=== PATIENT | female | born 1990 | race Caucasian/White ===

== ENCOUNTER 2017-07-14 16:03 | Emergency (ER) | payer MEDICAID ==
[2017-07-14] MEDS ORDERED: hydrOXYzine HCl 50 MG/ML SDV IM ONE (17:18)
[2017-07-14] MEDS ORDERED: Morphine 10 MG/ML Syringe IM ONE (17:18)
[2017-07-14 17:28] VITALS: BP 132/71
--- NOTE | 2017-07-14 20:18 | ER ---
DATE SEEN: 07/14/2017 CHIEF COMPLAINT: Headache. HISTORY OF PRESENT ILLNESS: This is a 26-year-old female complaining of a headache for 5 days, insidious onset, moderate to severe, associated with photophobia and/or characteristic of her usual migraine headache. She has taken ibuprofen at home with no relief. She also complains that she quit drinking about 5 days ago after a 2-month binge. REVIEW OF SYSTEMS: Nausea and vomiting. No fever. No neck stiffness. PAST MEDICAL HISTORY: Migraine headaches. ALLERGIES: None except red eye. PHYSICAL EXAMINATION: VITAL SIGNS: Blood pressure is normal, pulse is 64, and temperature 98.2. HEAD: Normocephalic. EYES: Normal. Pupils equal and reactive to light. NECK: Supple. CHEST: Clear. CARDIOVASCULAR: Normal. MENTAL STATUS: Alert. LABORATORY DATA: None. IMPRESSION: Migraine headache exacerbation treatment, morphine and Vistaril. Symptoms improved. She had previously received Toradol at the clinic and the patient went home to follow up p.r.n. TIME SEEN: 1700 hours. /[id number] OLIVER/KRISTINE
== END 2017-07-14 17:38 | disposition home or self-care (01) ==
LOC: FB.ED 16:03
DX: G43.909 Migraine, unspecified, not intractable, without status migrainosus (principal)
CPT/HCPCS: 96372; 99283; J2270; J3410

== ENCOUNTER 2017-11-09 22:25 | Emergency (ER) | payer MEDICAID ==
[2017-11-09] MEDS ORDERED: hydrOXYzine HCl 50 MG/ML SDV IM ONE (22:37)
[2017-11-09] MEDS ORDERED: Ketorolac 60 MG/2 ML SDV IM ONE (22:37)
[2017-11-09] MEDS ORDERED: Metoclopramide 10 MG/2 ML SDV IM ONE (22:37)
--- NOTE | 2017-11-10 00:39 | ER ---
DATE SEEN: 11/09/2017 CHIEF COMPLAINT: Migraines. HISTORY OF PRESENT ILLNESS: A 26-year-old complaining of migraine headache that started about a week ago insidiously and now progressively getting worse. Associated with aura, blacking out, and nausea. REVIEW OF SYSTEMS: No fever or sore throat. No chest pain or shortness of breath. She complains of stress. PAST MEDICAL HISTORY: Chronic headache, orthostatic hypotension. ALLERGIES: Red dye. PHYSICAL EXAMINATION: GENERAL: Well-hydrated. VITAL SIGNS: Blood pressure is normal, pulse is 100, oxygenation is 98% on room air. EARS, NOSE, AND THROAT: Negative. EYES: PERRL. CHEST: Clear. CARDIOVASCULAR: Normal. SKIN: No pallor or jaundice. MENTAL STATUS: Alert. NEUROLOGIC: Exam is normal with grossly intact cranial nerves and no lateralizing signs. IMPRESSION: Migraine headache with aura. TREATMENT: Ketorolac, vistaril, and Reglan. Advised to rest. Follow up in the office on Saturday. Return to the ED with any worsening symptoms. /[id number] OLIVER/ERICL
[2017-11-10 19:36] VITALS: BP 107/66
== END 2017-11-09 23:13 | disposition home or self-care (01) ==
LOC: FB.ED 22:25
DX: G43.109 Migraine with aura, not intractable, without status migrainosus (principal); I95.1 Orthostatic hypotension
CPT/HCPCS: 82962; 96372; 99282; J1885; J2765; J3410; 99283

== ENCOUNTER 2018-05-07 22:07 | Emergency (ER) | payer SELFPAY ==
--- NOTE | 2018-05-07 22:49 | EDM.PDOC ---
ED HPI GENERAL MEDICAL PROBLEM - General Chief Complaint: Headache Stated Complaint: MIGRAINE,JAW PAIN Time Seen by Provider: 05/07/18 22:30 Source of Information: Reports: Patient History Limitations: Reports: No Limitations - History of Present Illness INITIAL COMMENTS - FREE TEXT/NARRATIVE: Nadeen reports sxs of headache associated with R lower mandibular and TMJ pain over the past 24 hrs. Sxs have progressed inspite of Alleve tabs. She has been treated for migraines in the past, but does not tolerate meds. There is some nausea and photophobia. 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 Musculoskeletal History: Reports: Back Pain, Chronic Neurological History: Reports: Headaches, Chronic - Infectious Disease History Infectious Disease History: Reports: Chicken Pox Social & Family History - Family History Family Medical History: Noncontributory - Caffeine Use Caffeine Use: Reports: Coffee ED ROS GENERAL - Review of Systems Review Of Systems: ROS reveals no pertinent complaints other than HPI. - Physical Exam Exam: See Below Exam Limited By: No Limitations General Appearance: Alert, WD/WN, Mild Distress, Thin Eye Exam: Bilateral Eye: EOMI, Normal Inspection, PERRL Ears: Normal External Exam, Normal TMs, Other (R TMJ tender) Nose: Normal Inspection Throat/Mouth: Normal Lips, Normal Oropharynx, Normal Voice, No Airway Compromise , Other (caried molars #30 and #31 tender to percussion) Head Exam: Normocephalic, Scalp Tenderness (frontalis and temporalis on R) Neck: Normal Inspection, Supple, Non-Tender, Full Range of Motion Respiratory/Chest: Lungs Clear Cardiovascular: Regular Rate, Rhythm Neuro Exam (Abbreviated): Alert, Oriented, CN II-XII Intact, Normal Cognition, No Motor/Sensory Deficits Back Exam: Normal Inspection, Full Range of Motion Extremities: Normal Inspection, Normal Range of Motion, Non-Tender Psychiatric: Normal Affect, Normal Mood Skin Exam: Warm, Dry, Intact, Normal Color, No Rash Course - Vital Signs Text/Narrative:: Following assessment at the [facility] ED, I administered Toradol 30 mg IM and Vistaril 50 mg IM. - Orders/Labs/Meds Meds: Medications Discontinued Medications Generic Name Dose Route Start Last Admin Trade Name Santa PRN Reason Stop Dose Admin Hydroxyzine HCl 50 mg 05/07/18 22:42 Vistaril IM 05/07/18 22:43 ONETIME ONE Ketorolac Tromethamine 30 mg 05/07/18 22:41 Toradol IM 05/07/18 22:42 ONETIME ONE Departure - Departure Time of Disposition: 23:00 Disposition: Home, Self-Care 01 Condition: Fair Clinical Impression: Migraine, TMJ, Temporomandibular tdkbw-fdua-fkavcoqudqn syndrome, Myofascial Pain, Infected dental caries - Discharge Information *PRESCRIPTION DRUG MONITORING PROGRAM REVIEWED*: Not Applicable *COPY OF PRESCRIPTION DRUG MONITORING REPORT IN PATIENT DENNYS: Not Applicable Prescriptions: Ampicillin [Principen] 500 mg PO Q8H #20 cap Referrals: Alban Don MD [Primary Care Provider] - Forms: ED Department Discharge - Problem List & Annotations (1) Infected dental caries SNOMED Code(s): 48237952 Code(s): K02.9 - DENTAL CARIES, UNSPECIFIED; K04.7 - PERIAPICAL ABSCESS WITHOUT SINUS Status: Acute Annotation/Comment:: I dispensed Ampicillin 500 mg tid for a week. (2) Migraine SNOMED Code(s): 13059726 Code(s): G43.909 - MIGRAINE, UNSP, NOT INTRACTABLE, WITHOUT STATUS MIGRAINOSUS Status: Acute Annotation/Comment:: Continue NSAIDs for headache sxs. (3) TMJ, Temporomandibular lbfwp-qrum-sxwyhvvonnu syndrome, Myofascial Pain SNOMED Code(s): 559184458 Code(s): M26.629 - ARTHRALGIA OF TEMPOROMANDIBULAR JOINT, UNSPECIFIED SIDE Status: Acute Annotation/Comment:: See DDS regarding managment of numerous dental issues. - Problem List Review Problem List Initiated/Reviewed/Updated: Yes - Assessment/Plan Plan: Follow up with DDS.
[2018-05-07] MEDS: Ketorolac 30 MG/ML SDV IM ONE (22:59)
[2018-05-07] MEDS: hydrOXYzine HCl 50 MG/ML SDV IM ONE (23:00)
[2018-05-08 00:41] VITALS: BP 122/51
== END 2018-05-07 23:07 | disposition home or self-care (01) ==
LOC: FB.ED 22:07
DX: M26.601 Right temporomandibular joint disorder, unspecified (principal); K04.7 Periapical abscess without sinus; G43.909 Migraine, unspecified, not intractable, without status migrainosus; Z91.02 Food additives allergy status
CPT/HCPCS: 96372; 99283; J1885; J3410

== ENCOUNTER 2018-09-19 09:44 | Emergency (ER) | payer SELFPAY ==
[2018-09-19] MEDS ORDERED: Ondansetron 8 MG Tab.DIS PO ONE (09:48)
[2018-09-19] MEDS ORDERED: SUMAtriptan 6 MG/0.5 ML SDV SUBCUT ONE (09:48)
--- NOTE | 2018-09-19 09:54 | EDM.PDOC ---
ED HPI GENERAL MEDICAL PROBLEM - General Stated Complaint: HEAD ACHE Time Seen by Provider: 09/19/18 09:44 Source of Information: Reports: Patient History Limitations: Reports: No Limitations - History of Present Illness INITIAL COMMENTS - FREE TEXT/NARRATIVE: 27 y.o.w.f with a h/o Migraine H/A came to the ED due to her classic migraine Headache with eugene temp headache, nausea and photophobia. No Trauma, but she may be . No trauma! Pt did not vomit but feels nauseated. She c/o right jaw pain as well. No other acute medical issues. 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 R headed migraine Pain Score (Numeric/FACES): 8 - Related Data Allergies Allergy/AdvReac Type Severity Reaction Status Date / Time red dye Allergy rash and Verified 09/19/18 09:51 swelling Home Meds: Home Meds Amoxicillin/Potassium Clav [Augmentin 875-125 Tablet] 1 each PO BID #20 tablet 09/19/18 [Rx] Ondansetron [Zofran ODT] 4 mg PO Q6H PRN #20 tab.dis 09/19/18 [Rx] Past Medical History HEENT History: Reports: Sinusitis Respiratory History: Reports: Asthma Gastrointestinal History: Reports: Other (See Below) Other 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 Musculoskeletal History: Reports: Back Pain, Chronic Neurological History: Reports: Headaches, Chronic - Infectious Disease History Infectious Disease History: Reports: Chicken Pox - Past Surgical History Respiratory Surgical History: Reports: None Social & Family History - Family History Family Medical History: Noncontributory - Caffeine Use Caffeine Use: Reports: Coffee ED ROS ENT - Review of Systems Review Of Systems: See Below Constitutional: Reports: Decreased Appetite HEENT: Reports: Dental Pain Respiratory: Reports: No Symptoms Cardiovascular: Reports: No Symptoms Endocrine: Reports: No Symptoms GI/Abdominal: Reports: Nausea : Reports: No Symptoms Musculoskeletal: Reports: No Symptoms Skin: Reports: No Symptoms Neurological: Reports: No Symptoms Psychiatric: Reports: No Symptoms Hematologic/Lymphatic: Reports: No Symptoms Immunologic: Reports: No Symptoms ED EXAM, ENT - Physical Exam Exam: See Below Exam Limited By: No Limitations General Appearance: Alert, WD/WN, Mild Distress Eye Exam: Bilateral Eye: Normal Inspection Ears: Normal External Exam Nose: Normal Inspection Mouth/Throat: Dental Pain, Dental Tenderness, Dental Trauma Head: Atraumatic, Normocephalic Neck: Normal Inspection, Supple, Non-Tender, Full Range of Motion Respiratory/Chest: No Respiratory Distress, Lungs Clear, Normal Breath Sounds, No Accessory Muscle Use, Chest Non-Tender Cardiovascular: Normal Peripheral Pulses, Regular Rate, Rhythm, No Edema, No Gallop, No JVD, No Murmur, No Rub GI/Abdominal: Normal Bowel Sounds, Soft, Non-Tender, No Organomegaly, No Distention, No Abnormal Bruit, No Mass, Pelvis Stable (Female) Exam: Deferred Back: Normal Inspection, Full Range of Motion Extremities: Normal Inspection, Normal Range of Motion, Non-Tender, No Pedal Edema Neurological: Alert, Oriented, CN II-XII Intact, Normal Cognition, Normal Gait Psychiatric: Normal Affect, Normal Mood Skin: Warm, Dry, Intact, Normal Color, No Rash Lymphatic: No Adenopathy Course - Vital Signs Text/Narrative:: 27 y.o.w.f with a h/o Migraine H/A came to the ED due to her classic migraine Headache with eugene temp headache, nausea and photophobia. No Trauma, but she may be . No trauma! Pt did not vomit but feels nauseated. She c/o right jaw pain as well. No other acute medical issues. 114/52 RR 18 Pulse ox 100% on RA Pulse 87 Temp 36.8 PE: Thin WNWD w f with headache, poor dentition with gingivitis and nausea. Neck supple. Labs/Imaging: Not indicated. Impression: Gingivitis, Tooth decay, Migraine Headache Tx: Zofran, Imitrex Reexam: Pain improved, pt requested to be D/C'd tp home. Plan: D/C with instructions Last Recorded V/S: Last Vital Signs Temp 36.7 C 09/19/18 09:45 Pulse 84 09/19/18 10:26 Resp 18 09/19/18 10:26 BP 133/74 09/19/18 10:26 Pulse Ox 100 09/19/18 10:26 - Orders/Labs/Meds Labs: Laboratory Tests 09/19/18 Range/Units 10:14 Urine HCG, Qual Negative (NEGATIVE) Meds: Medications Discontinued Medications Generic Name Dose Route Start Last Admin Trade Name Freq PRN Reason Stop Dose Admin Ondansetron HCl 8 mg 09/19/18 09:48 09/19/18 10:07 Zofran Odt PO 09/19/18 09:49 8 mg ONETIME ONE Administration Sumatriptan Succinate 6 mg 09/19/18 09:48 09/19/18 10:07 Imitrex SUBCUT 09/19/18 09:49 6 mg ONETIME ONE Administration Departure - Departure Time of Disposition: 10:20 Disposition: Home, Self-Care 01 Condition: Good Clinical Impression: Acute gingivitis, Tooth ache Migraine Qualifiers: Migraine type: without aura Status migrainosus presence: without status migrainosus Intractability: not intractable Qualified Code(s): G43.009 - Migraine without aura, not intractable, without status migrainosus - Discharge Information Prescriptions: Amoxicillin/Potassium Clav [Augmentin 875-125 Tablet] 1 each PO BID #20 tablet Ondansetron [Zofran ODT] 4 mg PO Q6H PRN #20 tab.dis PRN Reason: Nausea Instructions: Gingivitis, [id number], Sumatriptan injection, Migraine Headache, Ezry-bv-Awho, Ondansetron oral dissolving tablet Referrals: Alban Don MD [Primary Care Provider] - Forms: ED Department Discharge, ED Return to Work/School Form Additional Instructions: Activity as tolerated. Increase fluids. Augmentin 875mg twice a day until gone. Zofran 4mg 1 tablet every 6 hours as needed for increased nausea. Tylenol or Ibuprofen as needed for pain. Follow up with your regular MD at clinic if not improving.
[2018-09-19 11:04] VITALS: BP 133/74
== END 2018-09-19 10:40 | disposition home or self-care (01) ==
LOC: FB.ED 09:44
DX: G43.009 Migraine without aura, not intractable, without status migrainosus (principal); K05.00 Acute gingivitis, plaque induced; F17.210 Nicotine dependence, cigarettes, uncomplicated
CPT/HCPCS: 81025; 96372; 99284; A9270-GY; J3030

== ENCOUNTER 2018-11-05 17:36 | Emergency (ER) | payer MEDICAID, OTHER ==
[2018-11-05] MEDS ORDERED: Ketorolac 30 MG/ML SDV IVPUSH ONE (17:46)
[2018-11-05] MEDS ORDERED: Ondansetron 4 MG/2 ML SDV IVPUSH ONE (17:46)
[2018-11-05] MEDS ORDERED: Sodium Chloride 0.9% 1,000 ML IV ONE (17:46)
[2018-11-05] MEDS ORDERED: Alum Hydroxide/Mag Hydroxide 15 ML, Lidocaine 2% 15 ML PO ONE ×2 (17:48)
--- NOTE | 2018-11-05 17:56 | EDM.PDOC ---
ED HPI GENERAL MEDICAL PROBLEM - General Stated Complaint: SOB, MIGRAINE Time Seen by Provider: 11/05/18 17:36 Source of Information: Reports: Patient, Family History Limitations: Reports: No Limitations - History of Present Illness INITIAL COMMENTS - FREE TEXT/NARRATIVE: 27 y.o.w.f -smoker-came with a friend to the ed due to N/V/D for 2 days. 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 She has a productive cough as well. She had multiple loose stools. She is not able to keep any food "down". She has epigastric pain as well. She feels SOB because it hurts to breath. No trauma, Pt denies no F/C, denies or any other acute medical issues. BP 91/54 Pulse 81 Temp 36.4 RR 18 Pulse ox 100% on RA Onset Date: 11/03/18 Onset Time: 07:00 Duration: Day(s):, Getting Worse, Intermittent Location: Reports: Chest Quality: Reports: Dull Severity: Mild Improves with: Reports: Medication Worsens with: Reports: Breathing, Eating Context: Reports: Sick Contact Associated Symptoms: Reports: Cough, Nausea/Vomiting, Shortness of Breath (with cough) R frontal migraine & chest Pain Score (Numeric/FACES): 9 - Related Data Allergies Allergy/AdvReac Type Severity Reaction Status Date / Time red dye Allergy rash and Verified 11/05/18 17:59 swelling Home Meds: Home Meds Ciprofloxacin HCl [Cipro] 500 mg PO BID #20 tablet 11/05/18 [Rx] Ondansetron [Zofran ODT] 4 mg PO Q6H PRN #16 tab.dis 11/05/18 [Rx] Past Medical History HEENT History: Reports: Sinusitis Respiratory History: Reports: Asthma Gastrointestinal History: Reports: Other (See Below) Other 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 Musculoskeletal History: Reports: Back Pain, Chronic Neurological History: Reports: Headaches, Chronic Psychiatric History: Reports: Anxiety, Depression, Panic Attack Hematologic History: Reports: Anemia - Infectious Disease History Infectious Disease History: Reports: Chicken Pox - Past Surgical History Respiratory Surgical History: Reports: None Social & Family History - Family History Family Medical History: Noncontributory - Caffeine Use Caffeine Use: Reports: Coffee ED ROS GENERAL - Review of Systems Review Of Systems: See Below Constitutional: Reports: Decreased Appetite HEENT: Reports: No Symptoms Respiratory: Reports: Pleuritic Chest Pain, Cough, Sputum (productive) Cardiovascular: Reports: No Symptoms Endocrine: Reports: No Symptoms GI/Abdominal: Reports: No Symptoms : Reports: No Symptoms Musculoskeletal: Reports: No Symptoms Skin: Reports: No Symptoms Neurological: Reports: No Symptoms Psychiatric: Reports: No Symptoms Hematologic/Lymphatic: Reports: No Symptoms Immunologic: Reports: No Symptoms ED EXAM, GENERAL - Physical Exam Exam: See Below Exam Limited By: No Limitations General Appearance: Alert, WD/WN, Mild Distress, Thin Eye Exam: Bilateral Eye: Normal Inspection Ears: Normal External Exam Ear Exam: Bilateral Ear: Auricle Normal Nose: Normal Inspection Throat/Mouth: Normal Lips, Normal Voice, No Airway Compromise, Other (poor dentition) Head: Atraumatic, Normocephalic Neck: Normal Inspection, Supple, Non-Tender, Full Range of Motion Respiratory/Chest: Decreased Breath Sounds (du eto poor air movement), Rhonchi Cardiovascular: Normal Peripheral Pulses, Regular Rate, Rhythm, No Edema, No Gallop, No JVD, No Murmur, No Rub Peripheral Pulses: 2+: Brachial (L) GI/Abdominal: Normal Bowel Sounds, Soft, Non-Tender, No Organomegaly, No Abnormal Bruit, No Mass, Pelvis Stable (Female) Exam: Deferred Rectal (Female) Exam: Deferred Back Exam: Normal Inspection, Full Range of Motion Extremities: Normal Inspection, Normal Range of Motion, Non-Tender, No Pedal Edema Neurological: Alert, Oriented, CN II-XII Intact, Normal Cognition, Normal Gait Psychiatric: Normal Affect, Normal Mood Skin Exam: Warm, Dry, Intact, Normal Color, No Rash Lymphatic: No Adenopathy Course - Vital Signs Text/Narrative:: 27 y.o.w.f -smoker-came with a friend to the ed due to N/V/D for 2 days. 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 She has a productive cough as well. She had multiple loose stools. She is not able to keep any food "down". She has epigastric pain as well and painful urination. She feels SOB because it hurts to breath. No trauma, Pt denies no F/C, denies or any other acute medical issues. BP 91/54 Pulse 81 Temp 36.4 RR 18 Pulse ox 100% on RA PE: Thin 27 y.o.w.f with N/V/D and pleuritic chest pain, dry mucosal membrane Labs: UA pos for UTI CBC, BMP nl Impression: UTI, dehydration, Acute Bronchitis, Costochondritis Tx: Toradol, NS, Cipr, Zofran, GI cocktail Reexam: Improved, nausea subsided, pt was able to drink water Plan: D/C with instructions. Last Recorded V/S: Last Vital Signs Temp 36.3 C 11/05/18 17:50 Pulse 87 11/05/18 17:50 Resp 18 11/05/18 17:50 BP 91/54 L 11/05/18 17:50 Pulse Ox 100 11/05/18 17:50 - Orders/Labs/Meds Orders: Active Orders 24 hr Category Date Time Status CULTURE URINE [RM] Stat Lab 11/05/18 18:07 Received Labs: Laboratory Tests 11/05/18 11/05/18 11/05/18 Range/Units 18:05 18:05 18:07 WBC 8.3 (4.5-12.0) X10-3/uL RBC 4.50 (3.23-5.20) x10(6)uL Hgb 13.3 (11.5-15.5) g/dL Hct 40.4 (30.0-51.3) % MCV 89.8 (80-96) fL MCH 29.6 (27.7-33.6) pg MCHC 33.0 (32.2-35.4) g/dL RDW 13.8 (11.5-15.5) % Plt Count 299 (125-369) X10(3)uL MPV 8.4 (7.4-10.4) fL Neut % (Auto) 59.2 (46-82) % Lymph % (Auto) 30.3 (13-37) % [place] % (Auto) 6.3 (4-12) % Eos % (Auto) 2 (1.0-5.0) % Baso % (Auto) 3 H (0-2) % Neut # (Auto) 5.0 (1.6-8.3) # Lymph # (Auto) 2.5 (0.6-5.0) # [place] # (Auto) 0.5 (0.0-1.3) # Eos # (Auto) 0.1 (0.0-0.8) # Baso # (Auto) 0.2 (0.0-0.2) # Sodium 138 (135-145) mmol/L Potassium 4.3 (3.5-5.3) mmol/L Chloride 100 (100-110) mmol/L Carbon Dioxide 29 (21-32) mmol/L BUN 11 (7-18) mg/dL Creatinine 0.7 (0.55-1.02) mg/dL Est Cr Clr Drug Dosing 83.96 mL/min Estimated GFR (MDRD) > 60 (>60) BUN/Creatinine Ratio 15.7 (9-20) Glucose 82 (80-116) mg/dL Calcium 9.3 (8.6-10.2) mg/dL Urine Color Yellow (YELLOW) Urine Appearance Clear (CLEAR) Urine pH 7.0 H (5.0-6.5) Ur Specific [place] 1.010 (1.010-1.025) Urine Protein Negative (NEGATIVE) mg/dL Urine Glucose (UA) Normal (NORMAL) mg/dL Urine Ketones Negative (NEGATIVE) mg/dL Urine Occult Blood Negative (NEGATIVE) Urine Nitrite Negative (NEGATIVE) Urine Bilirubin Negative (NEGATIVE) Urine Urobilinogen Normal (NEGATIVE) mg/dL Ur Leukocyte Esterase Large H (NEGATIVE) Urine RBC 0-5 (0-5) Urine WBC 5-10 H (0-5) Ur Squamous Epith Cells Few H (NS,R,O) Urine Bacteria Few H (NS) Meds: Medications Discontinued Medications Generic Name Dose Route Start Last Admin Trade Name Freq PRN Reason Stop Dose Admin Ciprofloxacin 500 mg 11/05/18 18:32 11/05/18 18:41 Ciprofloxacin Hcl PO 11/05/18 18:33 500 mg ONETIME ONE Administration Al Hydroxide/Mg Hydroxide 15 0 ml 11/05/18 17:48 11/05/18 18:39 ml/ Lidocaine HCl 15 ml PO 11/05/18 17:49 15 ml ONETIME ONE Administration Sodium Chloride 1,000 mls @ 999 mls/hr 11/05/18 17:46 11/05/18 18:33 Normal Saline IV 11/05/18 18:46 999 mls/hr .BOLUS ONE Administration Ketorolac Tromethamine 30 mg 11/05/18 17:46 11/05/18 18:38 Toradol IVPUSH 11/05/18 17:47 30 mg ONETIME ONE Administration Ondansetron HCl 8 mg 11/05/18 17:46 11/05/18 18:36 Zofran IVPUSH 11/05/18 17:47 8 mg ONETIME ONE Administration Departure - Departure Time of Disposition: 18:51 Disposition: Home, Self-Care 01 Condition: Good Clinical Impression: Acute bronchitis, Gastroenteritis, UTI (urinary tract infection) - Discharge Information Prescriptions: Ciprofloxacin HCl [Cipro] 500 mg PO BID #20 tablet Ondansetron [Zofran ODT] 4 mg PO Q6H PRN #16 tab.dis PRN Reason: Nausea Instructions: Ketorolac injection, Ondansetron injection, Urinary Tract Infection, Adult, [id number]-[id number], Acute Bronchitis, Adult, Vgsw-up-[id number], Ciprofloxacin tablets Referrals: Alban Don MD [Primary Care Provider] - Forms: ED Department Discharge, ED Return to Work/School Form Additional Instructions: Please take Zofran and cipro as recommended, please increase water intake, please quit smoking, please advance diet as tolerated, please follow up with your regular MD if not improving, come back if your symptoms get worse acutely - My Orders Last 24 Hours: My Active Orders 11/05/18 18:07 CULTURE URINE [RM] Stat - Assessment/Plan Last 24 Hours: My Active Orders 11/05/18 18:07 CULTURE URINE [RM] Stat
[2018-11-05 18:05] VITALS: BP 91/54
[2018-11-05] MEDS ORDERED: Ciprofloxacin 500 MG Tab PO ONE (18:32)
== END 2018-11-05 19:40 | disposition home or self-care (01) ==
LOC: FB.ED 17:36
DX: J20.9 Acute bronchitis, unspecified (principal); K52.9 Noninfective gastroenteritis and colitis, unspecified; N39.0 Urinary tract infection, site not specified; M94.0 Chondrocostal junction syndrome [Tietze]; Z91.041 Radiographic dye allergy status
CPT/HCPCS: 36415; 80048; 81001; 85025; 87086; 96361; 96374; 96375; 99283; 99284; A9270; J1885; J2405; J7030

== ENCOUNTER 2019-01-28 11:12 | Emergency (ER) | payer SELFPAY ==
--- NOTE | 2019-01-28 11:56 | EDM.PDOC ---
ED HPI GENERAL MEDICAL PROBLEM - General Chief Complaint: Headache Stated Complaint: MIGRAINE Time Seen by Provider: 01/28/19 11:45 Source of Information: Reports: Patient - History of Present Illness INITIAL COMMENTS - FREE TEXT/NARRATIVE: patient presents with concern for 3 days migraine, right side of face, vision slightly affected, very sharp pain, has not been able to function very well. Has tried ibuprofen, taking a nap which usually works. Long history of migraines. LMP ended on January 25, often has a hormonal component that seems to trigger them, did not tolerate contraception. Has not had any sexual activity since August. Had about 4 headaches in December, which seemed to respond to laying down in a dark room, and taking ibuprofen. No neck pain, no fever, chills or sweats. This is similar to her previous migraines. 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 Smokes, which seems to help her headaches. Sometimes takes Excedrin Migraine, but otherwise not on any medications chronically. Drinks about 100 ounces of coffee per day and 1-3 rock stars, so significant caffeine consumption. Took 800 mg ibuprofen this morning but otherwise has not taken any other medications today. No recent trauma. Does not have pcp at the moment, hers recently retired. 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 Musculoskeletal History: Reports: Back Pain, Chronic Neurological History: Reports: Headaches, Chronic Psychiatric History: Reports: Anxiety, Depression, Panic Attack Hematologic History: Reports: Anemia Dermatologic History: Reports: Eczema - Infectious Disease History Infectious Disease History: Reports: Chicken Pox - Past Surgical History Respiratory Surgical History: Reports: None Social & Family History - Family History Family Medical History: Noncontributory - Tobacco Use Smoking Status *Q: Current Every Day Smoker - Caffeine Use Caffeine Use: Reports: Coffee - Recreational Drug Use Recreational Drug Use: No - Living Situation & Occupation Living situation: Reports: Single, with Family Occupation: Employed ED ROS GENERAL - Review of Systems Review Of Systems: ROS reveals no pertinent complaints other than HPI. ED EXAM, GENERAL - Physical Exam Exam: See Below Free Text/Narrative:: Gen.: Alert, pleasant not acutely distressed but appears uncomfortable. Pupils are equal and reactive, photophobia particular marked on the right eye. Extraocular motion intact and conjunctivae are clear. Tympanic membranes are clear bilaterally with normal light reflex, throat is without erythema, because members are moist there is no tonsillar enlargement or exudates. No cervical adenopathy and no sinus tenderness. Lungs are clear throughout with no wheezes or crackles, heart is regular rate and rhythm. Abdomen soft and nontender. Strength is +5/5 in both the upper and lower extremities bilaterally, reflexes + 2/4 in both the upper and lower extremities bilaterally, sensation grossly intact. [id number] and [id number] are equal side to side and gait is normal. Course - Vital Signs Text/Narrative:: Patient with strong history of migraine headaches, contribute in factors include hormone swings, probably lack of sleep, caffeine overuse and smoking. Not sure what triggered this one but thinks it's related ending her menstrual cycle. Since usually responds well to ibuprofen, IV fluids and nausea medication , will give IV fluids and Reglan. She already took 800 mg of ibuprofen this morning at home. Normal neuro exam, no indication for labs at this time Last Recorded V/S: Last Vital Signs Temp 37.0 C 01/28/19 11:19 Pulse 102 H 01/28/19 11:19 Resp 20 01/28/19 11:19 BP 103/51 L 01/28/19 11:19 Pulse Ox 98 01/28/19 11:19 - Orders/Labs/Meds Orders: Active Orders 24 hr Category Date Time Status Sodium Chloride 0.9% [Normal Saline] 1,000 ml Med 01/28/19 12:03 Active IV .BOLUS Sodium Chloride 0.9% [Saline Flush] Med 01/28/19 12:03 Active 10 ml FLUSH ASDIRECTED PRN Saline Lock Insert [OM.PC] Routine Oth 01/28/19 12:03 Ordered Medication Orders Sodium Chloride (Normal Saline) 1,000 mls @ 999 mls/hr IV .BOLUS ONE Stop: 01/28/19 13:03 Last Admin: 01/28/19 12:20 Dose: 999 mls/hr Sodium Chloride (Saline Flush) 10 ml FLUSH ASDIRECTED PRN PRN Reason: Keep Vein Open Meds: Medications Generic Name Dose Route Start Last Admin Trade Name Freq PRN Reason Stop Dose Admin Sodium Chloride 1,000 mls @ 999 mls/hr 01/28/19 12:03 01/28/19 12:20 Normal Saline IV 01/28/19 13:03 999 mls/hr .BOLUS ONE Administration Sodium Chloride 10 ml 01/28/19 12:03 Saline Flush FLUSH ASDIRECTED PRN Keep Vein Open Discontinued Medications Generic Name Dose Route Start Last Admin Trade Name Freq PRN Reason Stop Dose Admin Metoclopramide HCl 10 mg 01/28/19 12:03 01/28/19 12:23 Reglan IVPUSH 01/28/19 12:04 10 mg ONETIME ONE Administration - Re-Assessments/Exams Free Text/Narrative Re-Assessment/Exam: 01/28/19 13:03 patient much improved following about 600 of IV fluid and dose of Reglan. She feels as though her headache is almost resolved and is ready to go home and take a nap. Discussed home treatments for migraines and signs or symptoms which prompt need for further evaluation, all questions answered. Discharged home Departure - Departure Time of Disposition: 13:04 Disposition: Home, Self-Care 01 Condition: Good Clinical Impression: Migraine headache with aura Qualifiers: Status migrainosus presence: without status migrainosus Intractability: not intractable Qualified Code(s): G43.109 - Migraine with aura, not intractable, without status migrainosus - Discharge Information *PRESCRIPTION DRUG MONITORING PROGRAM REVIEWED*: Not Applicable *COPY OF PRESCRIPTION DRUG MONITORING REPORT IN PATIENT [place]: Not Applicable Instructions: Recurrent Migraine Headache Forms: ED Department Discharge Additional Instructions: Home treatment for migraines: drink large (1 qt) amount of water and take ibuprofen 600-800mg antinausea medication benadryl 50mg may want to SLOWLY taper off caffeine as it can both cause headaches with withdrawal and treat tension headaches as well. Recommend smoking cessation - My Orders Last 24 Hours: My Active Orders 01/28/19 12:03 Sodium Chloride 0.9% [Normal Saline] 1,000 ml IV .BOLUS Sodium Chloride 0.9% [Saline Flush] 10 ml FLUSH ASDIRECTED PRN Saline Lock Insert [OM.PC] Routine - Assessment/Plan Last 24 Hours: My Active Orders 01/28/19 12:03 Sodium Chloride 0.9% [Normal Saline] 1,000 ml IV .BOLUS Sodium Chloride 0.9% [Saline Flush] 10 ml FLUSH ASDIRECTED PRN Saline Lock Insert [OM.PC] Routine
[2019-01-28] MEDS ORDERED: Sodium Chloride 0.9% 10 ML Syringe FLUSH PRN (12:03)
[2019-01-28] MEDS ORDERED: Sodium Chloride 0.9% 1,000 ML IV ONE (12:03)
[2019-01-28] MEDS ORDERED: Metoclopramide 10 MG/2 ML SDV IVPUSH ONE (12:03)
[2019-01-28 13:19] VITALS: BP 104/57
== END 2019-01-28 13:10 | disposition home or self-care (01) ==
LOC: FB.ED 11:12
DX: G43.109 Migraine with aura, not intractable, without status migrainosus (principal); F17.200 Nicotine dependence, unspecified, uncomplicated; Z91.09 Other allergy status, other than to drugs and biological substances
CPT/HCPCS: 96361; 96374; 99283; J2765; J7030

== ENCOUNTER 2025-02-28 15:03 | Emergency (ER) | payer SELFPAY ==
[2025-02-28 16:01] VITALS: BP 93/63; PULSE 103
== END 2025-02-28 16:26 | disposition home or self-care (01) ==
LOC: FB.ED 15:03
DX: S70.362A Insect bite (nonvenomous), left thigh, initial encounter (principal); F17.210 Nicotine dependence, cigarettes, uncomplicated; Z91.041 Radiographic dye allergy status; Z79.899 Other long term (current) drug therapy; W57.XXXA Bitten or stung by nonvenomous insect and other nonvenomous arthropods, initial encounter; Y93.89 Activity, other specified
CPT/HCPCS: 99283